=== PATIENT | male | born 1940 | race Caucasian/White ===

== ENCOUNTER 2017-05-23 06:51 | Day surgery (SDC) ==
[2012-09-20 22:27] VITALS: BMI 34.9
[2017-05-23] MEDS ORDERED: LIDOCAINE 1% 20 ML MDV ID STA (07:54)
[2017-05-23] MEDS ORDERED: DIPRIVAN 20 ML VIAL IVP ONE (09:21)
[2017-05-23] MEDS ORDERED: VERSED ONE (09:21)
[2017-05-23 12:02] VITALS: BP 110/65; TEMP 98.5
--- NOTE | 2017-05-23 15:39 | OP ---
INDICATIONS FOR PROCEDURE: 77 year old gentleman presents for colonoscopy evaluation. In June of 2013 he underwent a colonoscopy for his first ever. He was found to have multiple colon polyps. There was a large 3cm villous adenoma polyp in his sigmoid colon that had to be referred to surgery for surgical removal. The other polyps that were found during the colonoscopy were removed. He underwent that surgery and unfortunately he suffered an anastomotic leak and had repeat surgery with a colostomy. He was return in one year for colonoscopy but he did not do so. He now returns for surveillance colonoscopy. He did take a prep. He also took an enema this AM to clean his rectosigmoid stump. He states that he did have difficulty evacuate what he did inject in. MEDICATIONS: SEE ANESTHESIA NOTES. PROCEDURE:1.COLONOSCOPY VIA THE RECTUM FOR EVALUATION OF RECTOSIGMOID 2.COLONOSCOPY VIA COLOSTOMY WITH SALINE INJECTION/BIOPSY AND SNARE POLYPECTOMY REPORT: The risks, benefits, alternatives and limitations were discussed in detail with the patient. Informed consent was obtained. After adequate sedation was achieved, a digital rectal exam revealed mild to moderate anal stenosis. No masses. The colonoscope was introduced into the rectosigmoid bulb. There is retained stool the rectosigmoid. This is despite being bypassed and the attempt at cleaning enemas. I advanced the scope to the end of the stump. This appear unremarkable. I slowly withdrew the scope. What I could see I noted mild inflammation of the colon wall representing mild diversion colitis. I saw no large mass lesion and no large polyps. Again the view was obscured I'd say I could see 2/3 of the colonic mucosa but not all of it. I attempted to wash and suction off the stool and mucus the best as possible but again the view was limited as above. Once this procedure was complete the patient was turned to his back. Digitalization of the ostomy revealed no abnormalities. The colonoscopy was introduced via the colostomy and advance under direst visual guidance to the cecum. The cecum was Identified by the appendiceal orifice and IC valve. This was approximately the 55cm matthew with the scope as straight as possible. This represented 55cm of colon remaining from the ostomy. In the cecum there was a medium AVM. There were also three polyps. The largest one was carpeting and approximately 3cm or a little more in size. The other two were about 4mm and slight raised and the other one is about 7-8mm and slightly raised. I injected saline to perform a lift on the larger carpeting polyp. I was able to successfully achieve a good lift. Unfortunately given the very large size of this polyp once I had a saline lift I did not feel that it was reasonable to attempt to remove this by colonoscopy technique. I felt that given the very large size that the risks out weighed reasonable attempt. I therefore elected to chose to biopsy this carpeting polyp. I then withdrew the scope in circumferential manner and examined the mucosa quite carefully. I was able to retroflex the scope in the right and the left colon to increase visualization. In the ascending hepatic flexure area there was 7 polyps. These range in size from 5mm to 10mm. They were all slightly raised. I removed all of these 7 polyps by snare technique. In what I believe was the distal transverse colon at roughly 16cm from the ostomy was a single polyp. This was about 7mm in size and slightly raise, I removed it by snare technique. At 5cm there was two polyp presents. One was about 4mm in size it was removed by snare technique beside it was a raised polyp about 10mm in size; it was removed by snare technique and these polyps were placed in the same pathology jar. There was a few diverticuli present at this part of the colon. No other abnormalities were noted. The patient tolerated the procedure well with stable vital signs and pulse oximetry throughout. The total withdraw time and polypectomy time from the time that the cecum was reached to withdraw the scope was 22 minutes and 45 seconds. IMPRESSION: 1. Large 3cm Carpeting polyp in the cecum not removed. This was not amendable to removable by coloscopic technique 2. 2 smaller polyps in the surgical field located in the cecum not removed 3. 9 polyps removed from the remaining right colon as described above 4. Cecal AVM 5. Short segment of diverticulosis in the distal 5cm of the colon 6. Rectosigmoid pouch with mild diversion colitis 7. Stool remaining in the rectal sigmoid pouch obscuring the view somewhat but no large polyp or mass lesions or other abnormalities were noted. RECOMMENDATIONS: 1. Talked to the patient about going back to see Dr. Otero for surgical resection of the cecal polyps and possible reanastomosis 2. Await pathology results 3. Strongly recommend followup colonoscopy examination again in 1 year 4. We will see him back in the office as needed CC: Dr. Chin Otero ADDENDUM: I spoke to Mr. Núñez and his afterwards. We talked about the options. He would like to get another opinion at a [facility]. I would like to see Colorectal specialist. We discussed referral to [place]. They wish to go there for surgical opinion. We will work on scheduling him an appointment. I did ask the patient and his to contact our office in two days for the pathology results and for the appointment date if we have not been able to get a hold of them prior to that. They agreed to do so. He also agreed to return in one year for followup colonoscopy exam. CHETAN
== END 2017-05-23 11:25 | disposition home or self-care (01) ==
LOC: SURG 06:51
PROVIDERS: ATTEND Internal Medicine Gastroenterology
DX: Z09 Encounter for follow-up examination after completed treatment for conditions other than malignant neoplasm (principal); Z86.010 Personal history of colon polyps; D12.0 Benign neoplasm of cecum; D12.2 Benign neoplasm of ascending colon; D12.3 Benign neoplasm of transverse colon; D12.6 Benign neoplasm of colon, unspecified; K63.5 Polyp of colon; K52.9 Noninfective gastroenteritis and colitis, unspecified; Q27.33 Arteriovenous malformation of digestive system vessel; K57.30 Diverticulosis of large intestine without perforation or abscess without bleeding; K62.4 Stenosis of anus and rectum; Z93.3 Colostomy status